=== PATIENT | male | born 1985 | race Caucasian/White ===

== ENCOUNTER 2023-03-06 09:13 | Inpatient (IN) | payer OTHER ==
[~2023-03-06] VITALS: Ht 175.3 cm; Wt 92.1 kg
[2023-03-06 09:33] VITALS: BP 140/83
[2023-03-06 09:59] LABS: BASO % 0.4 % (0.0-1.0); EOS # 0.4 10*3/uL (0.0-0.4); EOS % 3.9 % (1.0-4.0); LYMPH # 3.2 10*3/uL (1.3-4.4); MEAN CELL VOLUME 88.7 fl (80.0-94.0); MEAN CORPUSCULAR HGB 31.1 pg (27.0-31.0); MEAN CORPUSCULAR HGB CONC 35.1 g/dl (33.0-37.0); MEAN PLATELET VOLUME 9.7 fl (9.6-12.3); MONO # 0.6 10*3/uL (0.1-1.0); NEUT # 4.7 10*3/uL (2.3-7.9); NEUT % 52.1 % (47.0-73.0); PLATELET COUNT AUTOMATED 221 10*3/uL (130-400); RED BLOOD COUNT 5.75 10*6/uL (4.50-5.90); RED CELL DISTRI WIDTH 12.8 % (0-14.5)
[2023-03-06 10:10] LABS: ACT PARTIAL THROMBO TIME 30.4 SECONDS (20.0-32.1); INTERNATIONAL NORM RATIO 0.9 (2.0-3.5)
[2023-03-06 10:16] LABS: ALKALINE PHOSPHATASE 84 U/L (46-116); BUN 8 mg/dl (9-23); CHLORIDE 103 mmol/L (98-107); POTASSIUM 4.6 mmol/L (3.4-5.1); SGPT/ALT 28 U/L (10-49); TOTAL PROTEIN 7.1 gm/dL (6.0-8.0)
[2023-03-06 10:18] LABS: BILIRUBIN Negative (Negative); BLOOD Negative (Negative); CLARITY Clear (Clear); COLOR Yellow (Yellow); GLUCOSE Negative (Negative); KETONE Negative (Negative); LEUKO ESTERASE Negative (Negative); NITRITE Negative (Negative); SPECIFIC GRAVITY 1.015 (1.001-1.030)
[2023-03-06 10:27] LABS: URINE AMPHETAMINES Negative (1000ng/ml); URINE BARBITURATES Negative (200ng/ml); URINE BENZODIAZEPINES Negative (200ng/ml); URINE CANNABINOIDS (THC) Positive (50ng/ml); URINE COCAINE Negative (300ng/ml); URINE METHADONE Negative (300ng/ml); URINE OPIATES Negative (300ng/ml); URINE PHENCYCLIDINE Negative (25ng/ml)
[2023-03-06 10:41] LABS: BACTERIA TRACE; EPITHELIAL CELLS 0-2; MUCOUS TRACE; RBC 0-2 rbc/hpf (0-2); WBC 0-2 wbc/hpf (0-5)
[2023-03-06 12:00] VITALS: BP 129/71
[2023-03-06 14:55] VITALS: BP 132/71
[2023-03-06 17:20] VITALS: BP 129/71
[2023-03-06 20:00] VITALS: BP 128/70
[2023-03-07] VITALS: BP 111/78
[2023-03-07 08:05] VITALS: BP 111/71
[2023-03-07 11:35] VITALS: BP 121/63
[2023-03-07 16:00] VITALS: BP 112/74
[2023-03-07 20:00] VITALS: BP 143/75
[2023-03-08] VITALS: BP 128/69
[2023-03-08 08:00] VITALS: BP 128/75
[2023-03-08] MEDS ORDERED: THERA TABLET400 MCG PO (09:17)
[2023-03-08] MEDS ORDERED: NATURE'S BLEND F1 MG PO (09:17)
[2023-03-08] MEDS ORDERED: ATARAX,VISTARIL50 MG PO (09:17)
[2023-03-08] MEDS ORDERED: TRAZODONE50 MG PO (09:17)
[2023-03-08] MEDS ORDERED: VITAMIN B-1100 M1 PO (09:17)
[2023-03-08] MEDS ORDERED: IBUPROFEN600 MG PO (09:17)
[2023-03-08] MEDS ORDERED: DICYCLOMINE HYD20 MG PO (09:17)
[2023-03-08] MEDS ORDERED: METHOCARBAMOL750 M1 PO (09:17)
[2023-03-08 11:59] VITALS: BP 130/91
[2023-03-08 16:00] VITALS: BP 139/85
[2023-03-08 20:00] VITALS: BP 138/78
[2023-03-09] VITALS: BP 139/71
[2023-03-09 08:00] VITALS: BP 124/72
[2023-03-09] MEDS ORDERED: REMERON15 M2 PO (10:58)
== END 2023-03-09 12:16 | disposition home or self-care (01) | DRG 776 ==
LOC: ED 09:13 → 4E 09:43 → EDHOLD 09:43 → 4E 16:15
PROVIDERS: Emergency Medicine; ADMIT Internal Medicine; ATTEND Internal Medicine
DX: F15.20 Other stimulant dependence, uncomplicated (principal); F41.9 Anxiety disorder, unspecified; F17.210 Nicotine dependence, cigarettes, uncomplicated; F33.2 Major depressive disorder, recurrent severe without psychotic features; Z91.51 Personal history of suicidal behavior